=== PATIENT | male | born 1950 | race Caucasian/White ===

== ENCOUNTER 2019-11-28 04:04 | Inpatient (IN) | payer OTHER, SELFPAY ==
[~2019-11-28] VITALS: Ht 167.6 cm; Wt 62.6 kg
--- NOTE | 2019-11-28 | NUR ---
LATES TEMP - 98.8 - NO COMPLAIN MADE , O2 SAT WNL . WILL CONT. TO MONITOR.
[~2019-11-28 04:04] MED LIST: LOMOTIL; SEPTRA
--- NOTE | 2019-11-28 04:13 | NUR ---
PT IN TENT
[2019-11-28 04:28] VITALS: BP 146/93
--- NOTE | 2019-11-28 04:36 | NUR ---
69 Y/O MALE C/O X 3 DAYS ABD PAIN 10/10; HEADACHE; TEMP IN TRIAGE 102.6; PT DENIES ANY TRAUMA; DENIES N/V/D; SKIN IS PINK/WARM/DRY; AAOX4 WITH EVEN AND STEADY GAIT; HR EVEN AND REGULAR; PT DENIES ANY CP, SOB, OR COUGH AT THIS TIME; PATIENT STATES PAIN OF 10/10 AT THIS TIME; VSS; PATIENT POSITIONED FOR COMFORT PMH: PT DENIES NKA
--- NOTE | 2019-11-28 04:44 | NUR ---
URINE SAMPLE OBTAINED
--- NOTE | 2019-11-28 04:44 | NUR ---
URINE DIP DONE
--- NOTE | 2019-11-28 04:44 | NUR ---
PT AMBULATED TO BED 8 WITH STEADY GAIT
[2019-11-28] MEDS ORDERED: HYDROcodone/APAP 10/325 MG 1 TAB TAB PO STA (04:52)
[2019-11-28] MEDS ORDERED: NACL 0.9% 1,000 ML IV ONE (04:57)
[2019-11-28] MEDS ORDERED: ACETAMINOPHEN EXTRA STRENGTH 500 MG TAB PO ONE (05:00)
[2019-11-28] MEDS ORDERED: MORPHINE SULFATE 4 MG/ML SYR IVP ONE (05:00)
--- NOTE | 2019-11-28 05:04 | NUR ---
PT TAKEN TO CT VIA W/C
[2019-11-28] MEDS ORDERED: cefTRIAXone 1,000 MG VIAL ONE ×2 (05:05→18:01)
--- NOTE | 2019-11-28 05:18 | NUR ---
PT RETURNED FROM CT VIA W/C.
--- NOTE | 2019-11-28 05:39 | NUR ---
BLOOD LABS / CULTURES AND URINE SAMPLE COLLECTED AND WALKED TO LAB.
--- NOTE | 2019-11-28 05:40 | NUR ---
PT SAO2 87% ON RM AIR ,PT PUT ON 3L NC SAO2 96%.
--- NOTE | 2019-11-28 05:56 | NUR ---
PT RESTING IN BED,LOCKED AND IN LOWEST POSITION, HOB ELEVATED, SIDE RAIL X1 , PT CONNECTED TO COST ESTIMATOR, PULSE OX AND BP CUFF. RR EVEN AND UNLABORED, VSS.
[2019-11-28 06:15] LABS: BILIRUBIN,URINE NEGATIVE (NEGATIVE); BLOOD, URINE NEGATIVE (NEGATIVE); COLOR,URINE YELLOW (YELLOW); LEUKOCYTE ESTERASE ,URINE NEGATIVE (NEGATIVE); NITRITE, URINE NEGATIVE (NEGATIVE); UGLUCOSE NEGATIVE (NEGATIVE)
--- NOTE | 2019-11-28 06:15 | NUR ---
PER T/C LAB , BLOOD LABS HEMOLYZED NEED REDRAW.
[2019-11-28 06:18] LABS: APPEARANCE,URINE SLIGHTLY HAZY (CLEAR)
[2019-11-28 06:20] LABS: HEMATOCRIT 43.4 % (36-52); HEMOGLOBIN 15.3 g/dL (12.0-18.0); MEAN CORPUSCULAR HEMOGLOBIN 33 pg (27-31); MEAN CORPUSCULAR HGB CONC 35 g/dL (33-37); MEAN CORPUSCULAR VOLUME 92.9 fL (80-94); PLATELET COUNT (AUTO) 149 K/uL (140-450); RED BLOOD CELL COUNT(AUTO) 4.67 MIL/uL (4.20-6.10); RED CELL DISTRIBUTION WIDTH 13.4 % (11.6-13.7); WHITE BLOOD COUNT (AUTO) 5.3 K/uL (4.8-10.8)
[2019-11-28 06:26] LABS: RBC,URINE 0-5 /HPF (0-5); WBC,URINE 0-5 /HPF (0-5)
[2019-11-28 06:27] LABS: URINE AMORPHOUS URATE 1+ /HPF (None Seen)
[2019-11-28 06:39] LABS: LYMPHOCYTES % (MANUAL) 6 % (20-46); MONOCYTES % (MANUAL) 3 % (5-12)
[2019-11-28 06:40] LABS: BASOPHILS % (MANUAL) 0 % (0-2); EOSINOPHILS % (MANUAL) 0 % (0-4)
--- NOTE | 2019-11-28 06:45 | NUR ---
BLOOD LABS RECOLLECTED AND FLU, RSV AND COVID SWABS COLLECTED AND ALL WALKED TO LAB.
--- NOTE | 2019-11-28 06:49 | NUR ---
PER DR. MCNULTY LOWER PT O2 TO 2L NC , PT CURRENT ON 2L NC SAO2 95%.
[2019-11-28 07:41] LABS: RSV NEGATIVE (NEGATIVE)
[2019-11-28 07:41] LABS: ALBUMIN 2.6 g/dL (3.4-5.0); ANION GAP 12.7 (8-16); CARBON DIOXIDE 28.3 mmol/L (21-32); CREATININE 0.7 mg/dL (0.6-1.3); TOTAL BILIRUBIN 0.3 mg/dL (0.0-1.0)
--- NOTE | 2019-11-28 07:41 | NUR ---
REPORT GIVEN TO ELSIE PÉREZ FOR TRANSFER OF CARE.
--- NOTE | 2019-11-28 08:38 | NUR ---
PT RESTING IN [place], ON BEDSIDE MONITOR. PULSE OX 95% ON 2L NC.
--- NOTE | 2019-11-28 10:05 | NUR ---
PT STATES HE FEELS "VERY GOOD" NOW. ONLY REQUESTING FOR URINAL WHICH HAS BEEN PROVIDED TO PT. NO OTHER COMPLAINTS. VSS ON BEDSIDE MONITOR. TEMP 98.4 ORAL AT THIS TIME.
--- NOTE | 2019-11-28 14:51 | NUR ---
Received report from sav Velazquez. Transfer of care at this time
--- NOTE | 2019-11-28 14:53 | NUR ---
[facility] MYSELF AND EMT. REPORT TO ELSIE SOLIS. PT IN STABLE CONDITION. VSS.
--- NOTE | 2019-11-28 16:31 | NUR ---
Dr Coffman at bedside speaking to pt. States pt is able to eat regular diet. Order placed for dinner.
[2019-11-28] MEDS ORDERED: HYDROcodone/APAP 5/325 MG 1 TAB TAB PO PRN ×2 (16:45)
[2019-11-28] MEDS ORDERED: CLONIDINE HYDROCHLORIDE 0.1 MG TAB PO PRN (16:45)
[2019-11-28] MEDS ORDERED: DOCUSATE SODIUM 250 MG GELCAP PO PRN (16:45)
[2019-11-28] MEDS ORDERED: LORazepam 2 MG/ML VIAL IVP PRN (16:45)
[2019-11-28] MEDS ORDERED: SODIUM PHOSPHATE 118 ML ENEM RC PRN (16:45)
[2019-11-28] MEDS ORDERED: ONDANSETRON 4 MG/2 ML VIAL IVP PRN (16:45)
[2019-11-28] MEDS ORDERED: MAG SULF 2000 MG/WATER PREMIX 50 ML IV PRN (16:45)
[2019-11-28] MEDS ORDERED: diphenhydrAMINE 50 MG/ML VIAL IVP PRN (16:45)
[2019-11-28] MEDS ORDERED: MAGNESIUM OXIDE 400 MG TAB PO PRN (16:45)
[2019-11-28] MEDS ORDERED: ALUMINUM HYD/MAG/SIMETHICONE 30 ML UDC PO PRN (16:45)
[2019-11-28] MEDS ORDERED: MORPHINE SULFATE 2 MG/ML SYR IVP PRN (16:45)
[2019-11-28] MEDS ORDERED: bisacodyL 10 MG SUPP RC PRN (16:45)
[2019-11-28] MEDS ORDERED: guaiFENesin DM 200/20 MG-10 ML 10 ML UDC PO PRN (16:45)
[2019-11-28] MEDS ORDERED: ZOLPIDEM 5 MG TAB PO PRN (16:45)
[2019-11-28] MEDS ORDERED: IPRATROPIUM 0.02% 0.5 MG/2.5 ML NEBU INH PRN (16:45)
[2019-11-28] MEDS ORDERED: ALBUTEROL 0.083% 2.5 MG/3 ML NEBU INH PRN (16:45)
[2019-11-28] MEDS ORDERED: POTASSIUM CHLORIDE 10 MEQ TABER PO PRN (16:45)
[2019-11-28] MEDS ORDERED: ACETAMINOPHEN 650 MG SUPP RC PRN (16:45)
--- NOTE | 2019-11-28 17:17 | NUR ---
Sitting upright in bed positioned for comfort. States he is hungry and is reassured dinner will be given to him shortly, pt understands. RR even and unlabored, vss.
--- NOTE | 2019-11-28 17:40 | NUR ---
Pt given dinner, sitting upright eating. No complaints at this time. will continue to monitor
[2019-11-28] MEDS: DEXAMETHASONE 4 MG/ML VIAL IVP SCH (18:10)
[2019-11-28] MEDS ORDERED: AZITHROMYCIN 500 MG INJ VIAL IV ONE (18:32)
[2019-11-28] MEDS: AZITHROMYCIN 500 MG in DEXTROSE 5% 250 ML IV SCH (18:47)
--- NOTE | 2019-11-28 18:50 | NUR ---
Resting with eyes closed, visible rise and fall of the chest. vss
[2019-11-28 19:10] VITALS: BP 122/75
--- NOTE | 2019-11-28 19:10 | NUR ---
RECEIVED PT AAOX4 , NID - O2 SAT WNL - W/ O2 AT 2LPM/NC , DENIES ANY PAIN . IV SITE INTACT AND PATENT . SAFETY MEASURES IN PLACE . CALL LIGHT WITHIN REACH. ON TELE MONITOR.- SR .PLAN OF CARE DISCUSSED AND VERBALIZED UNDERSTANDING . FEBRILE - WILL MEDICATE FOR FEVER ORDERED . ON DROPLET / CONTACT ISOLATION . WILL CONT. TO MONITOR.
[2019-11-28] MEDS: ACETAMINOPHEN 325 MG TAB PO PRN (20:19)
[2019-11-28] MEDS: ENOXAPARIN 60 MG/0.6 ML SYR SUBQ SCH (20:20)
--- NOTE | 2019-11-28 21:12 | NUR ---
COVID RESULTS RECEIVED FROM LAB. RESULT- POSITIVE. COPY OF LAB RESULT PLACED IN INFECTION CONTROL MAILBOX.
--- NOTE | 2019-11-28 22:00 | NUR ---
MADE ROUNDS , NO S/SX OF ACUTE DISTRESS NOTED AT THIS TIME , WILL CONT. TO MONITOR.CALL LIGHT WITHIN REACH .
[2019-11-29] VITALS: BP 150/90
--- NOTE | 2019-11-29 02:00 | NUR ---
SLEEPING - CHEST RISE AND FALL EQUALLY - HOOK ON O2 SAT MONITORING- O2 SAT WNL .WILL CONT. TO MONITOR.
[2019-11-29 04:00] VITALS: BP 145/90
--- NOTE | 2019-11-29 04:00 | NUR ---
MADE ROUNDS , NO S/SX OF ACUTE DISTRESS NOTED AT THIS TIME , WILL CONT. TO MONITOR.
--- NOTE | 2019-11-29 06:00 | NUR ---
NO COMPLAIN MADE . O2 SAT WNL .
[2019-11-29 06:55] LABS: BASOPHILS % (AUTO) 0.5 % (0.0-2.0); HEMATOCRIT 34.3 % (36-52); HEMOGLOBIN 15.2 g/dL (12.0-18.0); LYMPHOCYTES # (AUTO) 0.3 K/uL (2.0-11.5); LYMPHOCYTES % (AUTO) 12.3 % (20.5-51.1); MEAN CORPUSCULAR HEMOGLOBIN 43 pg (27-31); MEAN CORPUSCULAR HGB CONC 44 g/dL (33-37); MEAN CORPUSCULAR VOLUME 97.8 fL (80-94); MONOCYTES # (AUTO) 0.3 K/uL (0.8-1.0); MONOCYTES % (AUTO) 11.8 % (1.7-9.3); NEUTROPHILS % (AUTO) 75.4 % (42.2-75.2); PLATELET COUNT (AUTO) 164 K/uL (140-450); RED BLOOD CELL COUNT(AUTO) 3.51 MIL/uL (4.20-6.10); RED CELL DISTRIBUTION WIDTH 13.4 % (11.6-13.7); WHITE BLOOD COUNT (AUTO) 2.6 K/uL (4.8-10.8)
[2019-11-29 07:15] LABS: ALBUMIN 2.8 g/dL (3.4-5.0); ANION GAP 15.2 (8-16); CARBON DIOXIDE 28.5 mmol/L (21-32); POTASSIUM 3.7 mmol/L (3.5-5.1); TOTAL BILIRUBIN 0.5 mg/dL (0.0-1.0)
--- NOTE | 2019-11-29 07:15 | NUR ---
Received report from pm nurse Sharon. Pt resting in bed, awake, verbally responsive, no signs of distress. Respirations even & nonlabored on O2 @ 2Lpm via n/c. Right AC IV 20G intact & asymptomatic. Will cont to monitor.
--- NOTE | 2019-11-29 07:15 | NUR ---
ENDORSED TO AM SHIFT - PT - STABLE .
[2019-11-29 08:00] VITALS: BP 145/90
[2019-11-29] MEDS: DEXAMETHASONE 4 MG/ML VIAL IVP SCH (08:41)
[2019-11-29] MEDS: ENOXAPARIN 60 MG/0.6 ML SYR SUBQ SCH ×2 (08:56→21:38)
--- NOTE | 2019-11-29 09:42 | NUR ---
PATIENT HAS BEEN SCREENED AND CATEGORIZED MODERATE NUTRITION RISK. PATIENT WILL BE SEEN WITHIN 3-5 DAYS OF ADMISSION. 11/30/19 12/02/[address]
--- NOTE | 2019-11-29 10:30 | NUR ---
Assisted patient to restroom. Pt able to ambulate with steady gait. Made regular BM, washed hands, and returned to bed. Educated patient on frequent hand hygiene for standard precautions. Call light and bedside phone placed within reach. Right AC IV intact & asymptomatic with ongoing NS @ 10ml/hr TKVO.
[2019-11-29 12:00] VITALS: BP 134/80
--- NOTE | 2019-11-29 13:13 | NUR ---
PRODUCT MARKETING PROGRAMS MANAGER NOTE: Patient's Orientation Unable To Assess Information Provided By KEAGAN KYLE Comments SW WAS UNABLE TO MEET PATIENT AT BEDSIDE DUE TO MEDICAL CONDITION. Title I Teacher, Realtionship and Phone Number ROMÁN KYLE [phone] Healthcare Power of Distributor Sales Consultant No Does Patient Have a POLST No Identifying Problems No Social Work Triggers Is A Social Work Consult Needed No Mandate Report Filed No Explanation Of Identifying Problems PATIENT IS A 69-YEAR-OLD MALE ADMITTED FOR HYPOXIA, PNA, AND COVID R/O. PATIENT HAS NO PERTINENT PMHX. Admitted From Home Pre-Admission Level Of Functioning Status Independent/Ambulatory Prior Resources/Services Used In Last 12 Months No Prior Resources Used Prior DME No Prior DME Used Living Situation Lives With Family House Patient Had Caregiver No Home Support CG/Fam Able To Meet Need Financial Issues No Known Financial Issue Referral To The Financial Counselor Needed No Factors/Needs No D/C Needs Identified Pt/Rep Participated In Discharge Plan Yes Patient/Family Agress With Discharge Plan Yes Discharge Plan Comments TENTATIVE DISCHARGE PLAN IS FOR PATIENT TO RETURN HOME. DC Plan Status Initiated
[2019-11-29 16:00] VITALS: BP 125/89
--- NOTE | 2019-11-29 16:15 | NUR ---
Pt resting in bed, awake, watching TV. SaO2 = 87% on O2 @ 3Lpm via n/c. No SOB noted. Pulse ox on different fingers, but SaO2 result remains the same. O2 titrated up to 5Lpm via n/c with improvement of SaO2 = 91-93%. Instructed patient on deep breathing exercises and encouraged prone positioning. Patient verbalized understanding and agree with plan of care.
[2019-11-29] MEDS: AZITHROMYCIN 500 MG in DEXTROSE 5% 250 ML IV SCH (17:46)
--- NOTE | 2019-11-29 19:29 | NUR ---
RECEIVED REPORT FROM DUY RN, FOR CONTINUITY OF CARE. PT IS AA&OX4; BRITISH AND ROMANSH SPEAKING. COVID +. RESPIRATIONS ARE EVEN AND UNLABORED, BREATHING TO 6L 02 VIA NC; SPO2: 91%. RAC 20G IS PATENT AND INTACT, AND RUNNING TKO. SKIN INTACT. REVIEWED PLAN OF CARE WITH PATIENT. DROPLET PRECAUTIONS IN PLACE. SIGNS POSTED. TELE MONITOR ATTACHED. SAFETY MEASURES IN PLACE, BED IN LOW POSITION, CALL LIGHT WITHIN REACH. NO DISTRESS NOTED. WILL CONTINUE TO MONITOR.
[2019-11-29 20:00] VITALS: BP 133/85
[2019-11-29] MEDS: ZINC SULF 220 MG CAP PO SCH (21:37)
--- NOTE | 2019-11-29 21:46 | NUR ---
PT'S SCHEDULED MEDICATIONS GIVEN, WITH MEDICATION EDUCATION PROVIDED. PT TOLERATED PO MEDS WELL. TELE MONITOR ATTACHED. SAFETY MEASURES IN PLACE, BED IN LOW POSITION, CALL LIGHT WITHIN REACH. NO DISTRESS NOTED. WILL CONTINUE TO MONITOR.
[2019-11-30] VITALS: BP 130/82
[2019-11-30] MEDS ORDERED: remdesivir COMMUNICATION ORDER 1 EA MISC MC PRN (00:10)
[2019-11-30 04:00] VITALS: BP 135/80
--- NOTE | 2019-11-30 04:17 | NUR ---
PT IS RESTING IN BED, AROUSABLE TO VOICE. VITAL SIGNS TAKEN; BP: 133/85, PULSE: 73, TEMP: 98.5, SPO2: 93%, RR: 18. PT IS BREATHING TO NC @ 3 LPM. TELE MONITOR ATTACHED. SAFETY MEASURES IN PLACE. NO ACUTE DISTRESS NOTED. WILL CONTINUE TO MONITOR.
[2019-11-30 06:50] LABS: ALBUMIN 2.5 g/dL (3.4-5.0); ANION GAP 12.5 (8-16); CARBON DIOXIDE 28.4 mmol/L (21-32); CREATININE 0.8 mg/dL (0.6-1.3); POTASSIUM 3.9 mmol/L (3.5-5.1); TOTAL BILIRUBIN 0.4 mg/dL (0.0-1.0)
--- NOTE | 2019-11-30 07:38 | NUR ---
GAVE REPORT TO DAYSHIFT NURSE, FOR CONTINUITY OF CARE. PT IS IN STABLE CONDITION.
--- NOTE | 2019-11-30 07:39 | NUR ---
RECEIVED REPORT FROM PM RNSHAHLA. PT C/O ABDOMINAL PAIN, FEVER X3DAYS. DX: HYPOXIA, PNEUMONIA, +COVID. NO HX. NKA. NORMAL SR. FULL CODE. IV RT AC 20G 10ML/HR NS TKO. DIET REGULAR. INDEPENDENT. NC3L 93% CRACKLES IN LUNGS. SKIN IS INTACT. WILL CONTINUE TO MONITOR.
[2019-11-30] MEDS ORDERED: CLINICAL MONITORING MC PRN (07:40)
[2019-11-30 08:00] VITALS: BP 121/76
[2019-11-30 08:49] LABS: BASOPHILS # (AUTO) 0.1 K/uL (0.00-0.22); HEMATOCRIT 44.8 % (36-52); HEMOGLOBIN 15.3 g/dL (12.0-18.0); LYMPHOCYTES # (AUTO) 0.5 K/uL (2.0-11.5); LYMPHOCYTES % (AUTO) 4.2 % (20.5-51.1); MEAN CORPUSCULAR HEMOGLOBIN 31 pg (27-31); MEAN CORPUSCULAR HGB CONC 34 g/dL (33-37); MEAN CORPUSCULAR VOLUME 89.4 fL (80-94); MONOCYTES # (AUTO) 0.7 K/uL (0.8-1.0); MONOCYTES % (AUTO) 6.4 % (1.7-9.3); NEUTROPHILS # (AUTO) 10.2 K/uL (1.8-7.7); NEUTROPHILS % (AUTO) 88.4 % (42.2-75.2); PLATELET COUNT (AUTO) 208 K/uL (140-450); RED BLOOD CELL COUNT(AUTO) 5.01 MIL/uL (4.20-6.10); RED CELL DISTRIBUTION WIDTH 13.3 % (11.6-13.7)
[2019-11-30 08:51] LABS: WHITE BLOOD COUNT (AUTO) 11.6 K/uL (4.8-10.8)
[2019-11-30] MEDS ORDERED: remdesivir 200 mg in NACL 0.9% 100 ML IV SCH (09:00)
--- NOTE | 2019-11-30 10:00 | NUR ---
no reaction to antiviral. will continue to monitor
[2019-11-30] MEDS: ZINC SULF 220 MG CAP PO SCH ×2 (10:17→20:47)
[2019-11-30] MEDS: ASCORBIC ACID 500 MG TAB PO SCH (10:18)
[2019-11-30] MEDS: DEXAMETHASONE 4 MG/ML VIAL IVP SCH (10:18)
[2019-11-30] MEDS: ENOXAPARIN 60 MG/0.6 ML SYR SUBQ SCH ×2 (10:21→20:56)
[2019-11-30 12:00] VITALS: BP 141/87
--- NOTE | 2019-11-30 13:00 | NUR ---
lunch tray was not brought to pts room.
--- NOTE | 2019-11-30 14:00 | NUR ---
no signs of distress. respirations even and unlabored. will continue to monitor
[2019-11-30 16:00] VITALS: BP 135/75
--- NOTE | 2019-11-30 16:00 | NUR ---
pt vs stable. no complaints of pain. turn on ac to help cool pt. will continue to monitor.
--- NOTE | 2019-11-30 19:30 | NUR ---
RECEIVED BEDSIDE REPORT FROM DAY RN. PT IS AAOX4 MACEDONIAN AND INDIAN SPEAKING. ABLE TO MAKE NEEDS KNOWN. RESPIRATIONS ARE EQUAL AND UNLABORED ON NC 3L O2. SKIN IS INTACT. IV ON RAC 20G TKO. PT IS AMBULATORY ON DROPLET FOR COVID +. CALL LIGHT IS WITHIN REACH. WILL ROUND FREQUENTLY.
--- NOTE | 2019-11-30 19:30 | NUR ---
transfer of care to pm rn. no signs of distress. vs stable.
[2019-11-30 20:00] VITALS: BP 146/89
--- NOTE | 2019-11-30 20:54 | NUR ---
RECEIVED REPORT FROM AM SHIFT. PT SEEN AND ASSESSED. PT IS ON 3L NC WITH SPO2 OF 96%. PT IN NO RESPIRATORY DISTRESS AT THIS TIME. WILL CONTINUE TO MONITOR PT.
[2019-11-30] MEDS: ACETAMINOPHEN 325 MG TAB PO PRN (20:59)
--- NOTE | 2019-11-30 20:59 | NUR ---
VSS. ADMINISTERED SILVIA MEDICATIONS PER ORDERS. ADMINISTERED PRN TYLENOL FOR C/C HEADACHE. PT TOLERATED WELL. MED EDUCATION GIVEN. PT VERBALIZED UNDERSTANDINGS. ALL NEEDS MET. CALL LIGHT IS WITHIN REACH. WILL CONTINUE TO MONITOR.
--- NOTE | 2019-11-30 22:00 | NUR ---
PT IS RESTING COMFORTABLY IN BED. ALL NEEDS MET. CALL LIGHT IS WITHIN REACH. WILL CONTINUE TO MONITOR.
[2019-12-01] VITALS: BP 145/86
--- NOTE | 2019-12-01 | NUR ---
VITAL SIGNS ARE WITHIN NORMAL LIMITS. ALL SAFETY MEASURES ARE IN PLACE. CALL LIGHT IS WITHIN REACH.
--- NOTE | 2019-12-01 02:00 | NUR ---
MADE ROUNDS. PT IS SLEEPING COMFORTABLY IN BED WITH EYES CLOSED. CHEST RISE AND FALL NOTED. SAFETY MEASURES ARE IN PLACE. CALL LIGHT IS WITHIN REACH.
[2019-12-01 04:00] VITALS: BP 128/78
--- NOTE | 2019-12-01 04:00 | NUR ---
VITAL SIGNS ARE WITHIN NORMAL LIMITS. ALL SAFETY MEASURES ARE IN PLACE. CALL LIGHT IS WITHIN REACH. WILL CONTINUE TO MONITOR.
[2019-12-01 06:59] LABS: ALBUMIN 2.6 g/dL (3.4-5.0); ANION GAP 12.3 (8-16); CARBON DIOXIDE 28.6 mmol/L (21-32); CREATININE 0.7 mg/dL (0.6-1.3); POTASSIUM 3.9 mmol/L (3.5-5.1); TOTAL BILIRUBIN 0.7 mg/dL (0.0-1.0)
[2019-12-01 07:07] LABS: HEMATOCRIT 31.9 % (36-52); HEMOGLOBIN 14.9 g/dL (12.0-18.0); MEAN CORPUSCULAR HEMOGLOBIN 46 pg (27-31); MEAN CORPUSCULAR HGB CONC 47 g/dL (33-37); MEAN CORPUSCULAR VOLUME 97.8 fL (80-94); PLATELET COUNT (AUTO) 208 K/uL (140-450); RED BLOOD CELL COUNT(AUTO) 3.26 MIL/uL (4.20-6.10); RED CELL DISTRIBUTION WIDTH 13.2 % (11.6-13.7); WHITE BLOOD COUNT (AUTO) 8.8 K/uL (4.8-10.8)
--- NOTE | 2019-12-01 07:44 | NUR ---
GAVE BEDSIDE REPORT. PT ENDORSED IN STABLE CONDITION.
--- NOTE | 2019-12-01 07:45 | NUR ---
RECEIVED REPORT FROM NIGHT NURSE. PATIENT IS AWAKE, ALERT AND ORIENTED X4. PATIENT IS SALVADOREAN SPEAKING. O2 ON AT 3L VIA NC. PLANS OF CARE DISCUSSED. IV INTACT AND PATENT TO RIGHT AC. NO S/S OF DISTRESS NOTED. CALL LIGHT WITHIN REACH. BED IN LOW POSITION. SAFETY MEASURES IN PLACE.
[2019-12-01 08:00] VITALS: BP 137/91
[2019-12-01] MEDS: ENOXAPARIN 60 MG/0.6 ML SYR SUBQ SCH ×2 (09:36→21:49)
[2019-12-01] MEDS: remdesivir 100 mg in NACL 0.9% 100 ML IV SCH (09:37)
[2019-12-01] MEDS: ZINC SULF 220 MG CAP PO SCH ×2 (09:40→21:46)
[2019-12-01] MEDS: ASCORBIC ACID 500 MG TAB PO SCH (09:40)
[2019-12-01] MEDS: DEXAMETHASONE 4 MG/ML VIAL IVP SCH (09:42)
--- NOTE | 2019-12-01 10:00 | NUR ---
PATIENT REMAINS STABLE. AAOX4. DENIES ANY SOB OR DISCOMFORT. CALL LIGHT WITHIN REACH.
[2019-12-01 12:00] VITALS: BP 143/80
--- NOTE | 2019-12-01 12:00 | NUR ---
ROUNDS MADE. PATIENT REMAINS STABLE. AAOX4. DENIES ANY SOB OR DISCOMFORT. CALL LIGHT WITHIN REACH.
[2019-12-01 12:16] LABS: BASOPHILS % (MANUAL) 0 % (0-2); EOSINOPHILS % (MANUAL) 0 % (0-4); LYMPHOCYTES % (MANUAL) 3 % (20-46); MONOCYTES % (MANUAL) 4 % (5-12)
--- NOTE | 2019-12-01 14:00 | NUR ---
PATIENT IN BED, RESTING QUIETLY. AWAKE, ALERT AND VERBALLY RESPONSIVE. DENIES PAIN OR DISCOMFORT. CALL LIGHT WITHIN REACH.
[2019-12-01 16:00] VITALS: BP 140/83
--- NOTE | 2019-12-01 16:00 | NUR ---
PATIENT IN BED. AWAKE, ALERT AND VERBALLY RESPONSIVE. DENIES PAIN OR DISCOMFORT. O2 ON @ 3L NC. CALL LIGHT WITHIN REACH.
--- NOTE | 2019-12-01 18:52 | NUR ---
PATIENT IN STABLE CONDITION. WILL ENDORSE TO NIGHT NURSE.
--- NOTE | 2019-12-01 19:05 | NUR ---
RECD. RESTING IN BED, AWAKE, A/OX4. RESPIRATION EVEN AND UNLABORED. IV SALINE LOCK AT THE RIGHT AC G 20, PATENT AND INTACT. 0N 02 AT 5 LITERS N/C, 02 SATURATION - 92%. AMBULATORY TO THE BATHROOM. PLAN OF CARE FOR THE SHIFT DISCUSSED. VERBALIZED UNDERSTANDING. DENIES PAIN 0/10.
[2019-12-01 20:00] VITALS: BP 139/94
--- NOTE | 2019-12-01 20:37 | NUR ---
RECEIVED REPORT FROM AM SHIFT. PT SEEN AND ASSESSED. PT ON 5L NASAL CANNULA WITH SPO2 OF 95%. PT IN NO APPARENT RESPIRATORY DISTRESS AT THIS TIME. PRN TX NOT INDICATED AT THIS MOMENT. WILL CONTINUE TO MONITOR PT.
--- NOTE | 2019-12-01 21:49 | NUR ---
DUE MEDICATIONS FOR THE NIGHT GIVEN.
[2019-12-01] MEDS: ACETAMINOPHEN 325 MG TAB PO PRN (22:40)
--- NOTE | 2019-12-01 22:40 | NUR ---
UNABLE TO SLEEP, MEDICATED WITH AMBIEN PER MD ORDER.
[2019-12-02] VITALS: BP 125/85
--- NOTE | 2019-12-02 | NUR ---
SLEEPING COMFORTABLY IN BED.
--- NOTE | 2019-12-02 02:18 | NUR ---
Patient's Plan of Care was discussed and reviewed with THERAPY AIDE: RAJEEV CASTILLO
[2019-12-02 04:00] VITALS: BP 142/89
--- NOTE | 2019-12-02 04:00 | NUR ---
ADVISED TO ALTERNATELY TURN TO THE SIDES DURING SLEEPING AND OCCASIONALLY TAKE DEEP BREATHS. NOD IN UNDERSTANDING.
--- NOTE | 2019-12-02 07:00 | NUR ---
ABLE TO SLEEP WELL. CONDITION REMAIN STABLE. WILL ENDORSE TO AM SHIFT NURSE FOR CONTINUITY OF CARE.
--- NOTE | 2019-12-02 07:43 | NUR ---
RECEIVED REPORT FROM CUSTOMER SERVICE CONSULTANT NURSE REGARDING PATIENT CONDITION AND PLAN OF CARE. PATIENT CURRENTLY SITTING UP IN BED, ALERT, ORIENTED X 4, IN NO C/O OF PAIN AT THIS TIME, CURRENTLY ON 3L NASAL CANNULA, IN NO S/S RESPIRATORY DISTRESS. PATIENT HAS OCCASIONAL NON PRODUCTIVE COUGH. ALL NEEDS MET, CALL LIGHT WITHIN REACH, WILL CONTINUE TO MONITOR. DROPLET PRECAUTIONS FOLLOWED.
[2019-12-02 07:45] LABS: ALBUMIN 2.4 g/dL (3.4-5.0); ANION GAP 12.7 (8-16); CARBON DIOXIDE 28.1 mmol/L (21-32); CREATININE 0.6 mg/dL (0.6-1.3); POTASSIUM 3.8 mmol/L (3.5-5.1); TOTAL BILIRUBIN 0.7 mg/dL (0.0-1.0)
[2019-12-02 07:49] LABS: BASOPHILS % (AUTO) 0.3 % (0.0-2.0); HEMATOCRIT 34.8 % (36-52); HEMOGLOBIN 14.6 g/dL (12.0-18.0); LYMPHOCYTES # (AUTO) 0.5 K/uL (2.0-11.5); LYMPHOCYTES % (AUTO) 5.5 % (20.5-51.1); MEAN CORPUSCULAR HEMOGLOBIN 41 pg (27-31); MEAN CORPUSCULAR HGB CONC 42 g/dL (33-37); MEAN CORPUSCULAR VOLUME 96.5 fL (80-94); MONOCYTES # (AUTO) 0.7 K/uL (0.8-1.0); MONOCYTES % (AUTO) 7.9 % (1.7-9.3); NEUTROPHILS # (AUTO) 7.6 K/uL (1.8-7.7); NEUTROPHILS % (AUTO) 86.3 % (42.2-75.2); PLATELET COUNT (AUTO) 208 K/uL (140-450); RED BLOOD CELL COUNT(AUTO) 3.61 MIL/uL (4.20-6.10); RED CELL DISTRIBUTION WIDTH 13.5 % (11.6-13.7); WHITE BLOOD COUNT (AUTO) 8.8 K/uL (4.8-10.8)
[2019-12-02 08:00] VITALS: BP 150/91
[2019-12-02] MEDS: ZINC SULF 220 MG CAP PO SCH ×2 (09:37→20:17)
[2019-12-02] MEDS: ASCORBIC ACID 500 MG TAB PO SCH (09:39)
[2019-12-02] MEDS: DEXAMETHASONE 4 MG/ML VIAL IVP SCH (09:40)
[2019-12-02] MEDS: ENOXAPARIN 60 MG/0.6 ML SYR SUBQ SCH ×2 (09:44→20:17)
[2019-12-02] MEDS: remdesivir 100 mg in NACL 0.9% 100 ML IV SCH (09:49)
[2019-12-02] MEDS: ACETAMINOPHEN 325 MG TAB PO PRN (10:33)
[2019-12-02 12:00] VITALS: BP 140/86
--- NOTE | 2019-12-02 12:39 | NUR ---
DISCHARGE PLANNING: THIS IS A 69 Y/O MALE PATIENT FROM HOME, WHO CAME IN DUE TO 3 DAYS OF MID ABDOMINAL PAIN AND HEADACHE. INITIAL DIAGNOSIS OF HYPOXIA, PNA AND R/O COVID. CURRENT LABS INCLUDE WBC 8.8, H/H 14.6/34.8, D DIMER 357. COVID POSITIVE. O2 AT 3LPM/NC. ON REMDESIVIR, DECADRON. ID CONSULT IN PLACE AND SEEN. DC PLAN BACK TO HOME ONCE STABLE. Addendum: 12/03/19 at 1202 by Belen Cleveland CM FAXED PATIENTS ORDER FOR HOME TO EScott TUCKER FROM [facility] CONTACTED ME STATING THAT THEY RECEIVED THE ORDER AND RAN THE PT'S INSURANCE AND THIS PATIENT WILL BE A MEIER PAY PATIENT. Addendum: 12/03/19 at 1218 by Lexi Tong CM RECEIVED A CALL FROM WILLIAM MCMILLAN OF [facility] [phone]. SHE REQUESTED TO SEND ORDERS TO [phone] OF HOME O2 AND TO ADD AN ORDER FOR HOME HEALTH FOR HOME SAFETY BONY. [facility] MADE AWARE. Addendum: 12/03/19 at 1352 by Lexi Tong CM RECEIVED A HARD COPY OF AUTH [id number] FOR HOME O2. CONTACTED [employer] AT [phone], ABLE TO SPEAK TO ENDY. HE PROVIDED ME WITH FAX NUMBER [phone] TO SEND CLINICALS. CLINICALS AND ORDER SENT TO THE PROVIDED NUMBER. WILL FOLLOW UP. Addendum: 12/03/19 at 1432 by Lexi Tong CM FAX TO [facility] DID NOT GO THROUGH TWICE. CONTACTED WILLIAM THOMAS TO GET ANOTHER FAX NUMBER. SHE PROVIDED ME WITH [phone]. CLINICALS SENT. I ALSO INQUIRED REGARDING HOME HEALTH, SHE STATED THEY ARE STILL "SHOPPING AROUND." Addendum: 12/03/19 at 1642 by Belen Cleveland CM [facility] PROCESSING THE ORDER FOR HOME 02 Addendum: 12/04/19 at 0919 by Belen Cleveland CM FOLLOWED UP WITH [employer] SPOKE WITH RODRIGUEZ GRANDE STATED THAT THE HOME O2 HAS BEEN DELIVERED TO THE HOME AND BESIDE. Addendum: 12/04/19 at 0942 by Belen Cleveland CM SPOKE WITH BROOKE [phone] AT [facility] REGARDING HOME HEALTH FOR PATIENT, SHE STATED THAT SHE IS GOING TO SET UP HOME HEALTH FOR PATIENT HOWEVER SHE STATED SINCE PATIENT IS COVID POSITIVE THE HOME HEALTH WILL BE VIRTUAL MEETINGS. SHE IS GOING TO REACH OUT TO THE PATIENT.
--- NOTE | 2019-12-02 14:44 | NUR ---
12/02/19 RD INITIAL ASSESSMENT COMPLETED PLEASE REFER TO NUTRITION ASSESSMENT UNDER CARE ACTIVITY FOR ESTIMATED NUTRITIONAL NEEDS. 1. CONTINUE REGULAR DIET TOLERATED 2. RECOMMEND ENSURE BID 3. RD TO FOLLOW-UP 5-7 DAYS, LOW RISK SHERWIN PINEDO RD
[2019-12-02 16:00] VITALS: BP 146/88
--- NOTE | 2019-12-02 16:00 | NUR ---
AMBULATED PATIENT AROUND ROOM, PER PT AND FAMILY REQUEST. O2 SATURATION 94% WITH 3L NC. . WHEN OXYGEN REMOVED, PATIENT ABLE TO AMBULATE AND O2 SATURATION STAYED STABLE AT 91%. PATIENT HAS STEADY GAIT, INDEPENDENT TRANSFER. ALL NEEDS MET, CALL LIGHT WITHIN REACH, DROPLET PRECAUTIONS FOLLOWED.
--- NOTE | 2019-12-02 19:15 | NUR ---
REPORT GIVEN TO SENIOR CENTER MANAGER NURSE REGARDING PATIENT CONDITION AND PLAN OF CARE. PATIENT IS RESTING IN BED, CURRENTLY ON 3L O2 VIA NC, STABILIZED, WITH ALL NEEDS MET, CALL LIGHT WITHIN REACH.
--- NOTE | 2019-12-02 19:16 | NUR ---
RECEIVED BEDSIDE ENDORSEMENT FROM AM SHIFT RN. AOX4. ON 3LNC. O2 SAT WNL. NO SOB. DROPLET PRECAUTION OBSERVED AT ALL TIMES. PLAN OF CARE WAS DISCUSSED. CALL LIGHT WITHIN REACH.
[2019-12-02 20:00] VITALS: BP 145/96
--- NOTE | 2019-12-02 20:17 | NUR ---
DUE MEDS GIVEN ORDERED. TOLERATED WELL. MED EDUCATION PROVIDED. WILL CONTINUE TO MONITOR.
[2019-12-03] VITALS: BP 140/93
--- NOTE | 2019-12-03 00:08 | NUR ---
V/S TAKEN AND RECORDED.
[2019-12-03 04:00] VITALS: BP 138/90
--- NOTE | 2019-12-03 04:00 | NUR ---
V/S WNL. RESPIRATION EVEN AND UNLABORED.
[2019-12-03 06:52] LABS: BASOPHILS % (AUTO) 0.2 % (0.0-2.0); EOSINOPHILS % (AUTO) 0.1 % (0.0-4.0); HEMATOCRIT 40.9 % (36-52); LYMPHOCYTES % (AUTO) 7.7 % (20.5-51.1); MEAN CORPUSCULAR HEMOGLOBIN 38 pg (27-31); MEAN CORPUSCULAR HGB CONC 39 g/dL (33-37); MEAN CORPUSCULAR VOLUME 96.5 fL (80-94); MONOCYTES # (AUTO) 0.9 K/uL (0.8-1.0); NEUTROPHILS # (AUTO) 10.8 K/uL (1.8-7.7); PLATELET COUNT (AUTO) 271 K/uL (140-450); RED BLOOD CELL COUNT(AUTO) 4.24 MIL/uL (4.20-6.10); RED CELL DISTRIBUTION WIDTH 13.3 % (11.6-13.7); WHITE BLOOD COUNT (AUTO) 12.7 K/uL (4.8-10.8)
--- NOTE | 2019-12-03 07:10 | NUR ---
RECEIVED REPORT ON PATIENT CONDITION FROM TABLE OPERATOR NURSE. PATIENT IS IN STABLE CONDITION, SITTING UP IN BED, ALERT, ORIENTED X 3, IN NO S/S ACUTE RESPIRATORY DISTRESS, NO COMPLAINTS OF PAIN. PATIENT WATER REFILLED, ALL NEEDS MET, CALL LIGHT WITHIN REACH. WILL CONTINUE TO MONITOR. DROPLET PRECAUTIONS FOLLOWED.
--- NOTE | 2019-12-03 07:10 | NUR ---
PATIENT IS IN STABLE CONDITION. NO SOB. ENDORSED AT BEDSIDE TO ELSIE AGUIRRE FOR CONTINUITY OF CARE.
[2019-12-03 07:13] LABS: ALBUMIN 2.6 g/dL (3.4-5.0); ANION GAP 11.2 (8-16); CARBON DIOXIDE 26.9 mmol/L (21-32); CREATININE 0.8 mg/dL (0.6-1.3); POTASSIUM 4.1 mmol/L (3.5-5.1); TOTAL BILIRUBIN 0.8 mg/dL (0.0-1.0)
[2019-12-03 08:00] VITALS: BP 117/84
[2019-12-03] MEDS: ZINC SULF 220 MG CAP PO SCH ×2 (08:43→20:05)
--- NOTE | 2019-12-03 08:43 | NUR ---
MEDICATIONS EXPLAINED AND GIVEN TO PATIENT, PATIENT REFUSES LOVENOX STATING IS NOT 'NECESSARY', EXPLAINED TO PATIENT RISK OF DEVELOPING BLOOD CLOTS IN LEGS, VERBALIZED UNDERSTANDING BUT STILL REFUSES. STATES THAT HE DOES LEG EXERCISES IN BED AND GETS UP AND WALKS. PATIENT TOOK OTHER MEDICATIONS, TOLERATED WELL, NO ADVERSE SIDE EFFECTS NOTED. PATIENT RESPIRATORY STATUS STABLE, ON 4L VIA NC, SATURATION 93%, IN NO ACUTE S/S RESPIRATORY DISTRESS, NO C/O OF PAIN AT THIS TIME. PATIENT SKIN COLOR IS NORMAL, NO CYANOSIS OR EDEMA NOTED. PATIENT ALERT ORIENTED X 4, LEBANESE SPEAKING BUT ABLE TO CONVERSE IN SPANISH. IV DEXAMETHASONE AND REMDESIVIR GIVEN, NO S/S INFECTION AT IV SITE, FLUSHES WELL, SKIN INTACT. PT HAS OCCASIONAL COUGH , NON PRODUCTIVE. PT STATES HE ALSO JUST HAD BOWEL MOVEMENT EARLIER. ALL NEEDS MET, CALL LIGHT WITHIN REACH, WILL CONTINUE TO MONITOR.
[2019-12-03] MEDS: ASCORBIC ACID 500 MG TAB PO SCH (08:44)
[2019-12-03] MEDS: DEXAMETHASONE 4 MG/ML VIAL IVP SCH (08:44)
[2019-12-03] MEDS: ENOXAPARIN 60 MG/0.6 ML SYR SUBQ SCH ×3 (08:46→20:07)
[2019-12-03] MEDS: remdesivir 100 mg in NACL 0.9% 100 ML IV SCH (08:54)
[2019-12-03] MEDS ORDERED: ZINC220C28 PO (09:44)
[2019-12-03] MEDS ORDERED: ACET-1182 PO (09:44)
[2019-12-03] MEDS ORDERED: VITC500 PO (09:44)
[2019-12-03] MEDS ORDERED: APIX5TAB PO (09:44)
[2019-12-03] MEDS ORDERED: DEC1 PO (09:46)
--- NOTE | 2019-12-03 10:40 | NUR ---
ROUNDED ON PATIENT, PATIENT IS IN NO ACUTE RESPIRATORY DISTRESS, DOES NOT COMPLAIN OF ANY PAIN AT THIS TIME. PATIENT URINAL EMPTIED OF 700 ML OF CLEAR, YELLOW URINE. WATER REFILLED. PATIENT IS ON 4L O2 VIA NASAL CANNULA, SATURATION 94%. ALL NEEDS MET, CALL LIGHT WITHIN REACH, WILL CONTINUE TO MONITOR.
[2019-12-03 12:00] VITALS: BP 132/88
--- NOTE | 2019-12-03 12:30 | NUR ---
PATIENT ROUNDS-PATIENT IS IN NO ACUTE RESPIRATORY DISTRESS, DOES NOT COMPLAIN OF ANY PAIN AT THIS TIME. PATIENT IS ON 4L O2 VIA NASAL CANNULA, SATURATION 94%. VS STABLE, NO FEVER, CHILLS, OR SHORTNESS OF BREATH. ALL NEEDS MET, CALL LIGHT WITHIN REACH, WILL CONTINUE TO MONITOR.
--- NOTE | 2019-12-03 14:10 | NUR ---
ROUNDED ON PATIENT, IN NO S/S RESPIRATORY DISTRESS, NO C/O OF PAIN AT THIS TIME. URINAL EMPTIED OF 700 CLEAR, YELLOW, NONODOROUS URINE. PATIENT STATES HE STOOD BY BEDSIDE FOR 10 MINUTES WITH NO SHORTNESS OF BREATH. PATIENT ALSO REFUSES TKO IV RATE DESPITE EXPLANATION THAT THE LINE CAN CLOT. PT VERBALIZED UNDERSTANDING BUT STILL REFUSES IV TKO RATE. PATIENT WATER REFILLED. ALL NEEDS MET, CALL LIGHT WITHIN REACH, WILL CONTINUE TO MONITOR. DROPLET PRECAUTIONS FOLLOWED.
[2019-12-03 16:00] VITALS: BP 127/93
--- NOTE | 2019-12-03 16:30 | NUR ---
ASSISTED PATIENT IN SPEAKING WITH HOME HEALTH CARE AGENCY, MADE AWARE OF OXYGEN BEING DELIVERED TO HOME TOMORROW. PT VERBALIZED UNDERSTANDING. PATIENT IS IN NO ACUTE RESPIRATORY DISTRESS, DOES NOT COMPLAIN OF ANY PAIN AT THIS TIME. PATIENT IS ON 4L O2 VIA NASAL CANNULA, SATURATION 93%. PT VITAL SIGNS STABLE, NO FEVER OR CHILLS, OR SHORTNESS OF BREATH NOTED. BATTERIES AND ECG LEAD STICKERS CHANGED, WATER REFILLED. BARREL RIFLER HOOK DID LINEN CHANGE. ALL NEEDS MET, CALL LIGHT WITHIN REACH, WILL CONTINUE TO MONITOR.
--- NOTE | 2019-12-03 18:30 | NUR ---
PATIENT STABILIZED, RESTING IN BED, IN NO C/O OF PAIN NO S/S RESPIRATORY DISTRESS. ALL NEEDS MET, WILL CONTINUE TO MONITOR.
--- NOTE | 2019-12-03 19:21 | NUR ---
REPORT GIVEN TO RAILROAD OPERATOR NURSE REGARDING PATIENT STATUS AND PLAN OF CARE. PATIENT IS STABILIZED, SITTING UP IN CHAIR, IN NO S/S RESPIRATORY DISTRESS. ON 4L O2 VIA NC, SATURATION 92%. HEALTHCARE ALSO BROUGHT O2 CONCENTRATOR FOR PATIENT, PLACED IN PATIENT'S ROOM. NO COMPLAINTS OF PAIN AT THIS TIME. ALL NEEDS MET, CALL LIGHT WITHIN REACH, WILL CONTINUE TO MONITOR.
[2019-12-03 20:00] VITALS: BP 128/81
--- NOTE | 2019-12-03 20:05 | NUR ---
DUE MEDS GIVEN ORDERED. TOLERATED WELL. MED EDUCATION PROVIDED.
[2019-12-03] MEDS ORDERED: ALBUTEROL HFA MDI 90 MCG/ACTUATION 8 GM INH PRN (20:50)
[2019-12-04] VITALS: BP 123/86
--- NOTE | 2019-12-04 | NUR ---
V/S TAKEN. NO SOB.
[2019-12-04 04:00] VITALS: BP 126/88
--- NOTE | 2019-12-04 04:00 | NUR ---
V/S TAKEN, CONTINUE ON O2 NC AT 4L W/ O2 SATURATION OF 94%. NO SOB. DENIES PAIN.
--- NOTE | 2019-12-04 07:30 | NUR ---
PATIENT IS IN STABLE CONDITION. NO SOB. ENDORSED AT BEDSIDE TO AM SHIFT RN FOR CONTINUITY OF CARE.
--- NOTE | 2019-12-04 07:31 | NUR ---
RECEIVED REPORT FROM MACHINE ROOM ENGINEER NURSE. PATIENT SITTING DOWN IN BED WATCHING TV. NO DISTRESS NOTED. DENIES ANY PAIN. AAOX4, CALM, COOPERATIVE, SKIN COLOR APPROPRIATE TO ETHNICITY, WARM TO TOUCH. SKIN INTACT. RESPIRATIONS EVEN, UNLABORED, ON O2 4L/MIN VIA NC. IV SITE INTACT, PATENT, AND INFUSING IVF PER MD ORDERS. REVIEWED PLAN OF CARE WITH PATIENT. PATIENT VERBALIZED UNDERSTANDING. SAFETY MEASURES IN PLACE, CALL LIGHT WITHIN REACH. WILL CONTINUE TO MONITOR.
[2019-12-04 08:00] VITALS: BP 122/84
[2019-12-04 09:24] LABS: ALBUMIN 2.8 g/dL (3.4-5.0); CARBON DIOXIDE 24.3 mmol/L (21-32); CREATININE 0.7 mg/dL (0.6-1.3); POTASSIUM 4.3 mmol/L (3.5-5.1); TOTAL BILIRUBIN 0.9 mg/dL (0.0-1.0)
[2019-12-04] MEDS: ASCORBIC ACID 500 MG TAB PO SCH (09:26)
[2019-12-04] MEDS: ZINC SULF 220 MG CAP PO SCH (09:26)
[2019-12-04] MEDS: DEXAMETHASONE 4 MG/ML VIAL IVP SCH (09:26)
[2019-12-04] MEDS: ENOXAPARIN 60 MG/0.6 ML SYR SUBQ SCH (09:28)
--- NOTE | 2019-12-04 09:36 | NUR ---
SCHEDULED MEDICATIONS DUE GIVEN. WILL CONTINUE TO MONITOR.
[2019-12-04] MEDS: remdesivir 100 mg in NACL 0.9% 100 ML IV SCH (11:03)
--- NOTE | 2019-12-04 11:03 | NUR ---
SCHEDULED MEDICATIONS DUE GIVEN. WILL CONTINUE TO MONITOR.
[2019-12-04 12:00] VITALS: BP 120/75
--- NOTE | 2019-12-04 14:20 | NUR ---
DISCHARGE INSTRUCTIONS PROVIDED TO PATIENT AND DAUGHTER ON THE PHONE, PATIENT PREFERS DAUGHTER TO TRANSLATE TO SWEDISH. INSTRUCTIONS IN FOLLOW-UP VISIT WITH PCP, COVID PRECAUTIONS AT HOME AND SELF ISOLATION, REGARDING HOME HEALTH TO CALL PATIENT TO SCHEDULE APPOINTMENT PER DISCHARGE GAS LEAK TESTER MANA, AND NEW/CHANGED MEDICATION REGIMEN AND SIDE EFFECTS. ANSWERED ALL OF PATIENT'S QUESTIONS REGARDING DISCHARGE. PATIENT FAMILY VERBALIZED COMPLETE UNDERSTANDING. AWAITING FOR FAMILY MEMBER TO COME ACCESS TECH PATIENT. IV SITE REMOVED WITH MINIMAL BLOOD AND LUMEN COMPLETELY INTACT. ID BANDS REMOVED. PATIENT TO GET DRESSED. OXYGEN TANK FOR HOME AT BEDSIDE. PATIENT/FAMILY VERBALIZED UNDERSTANDING ON HOW TO USE HOME OXYGEN TANK. WILL CONTINUE TO MONITOR.
--- NOTE | 2019-12-04 14:35 | NUR ---
PATIENT'S FAMILY MEMBER AT LOBBY TO WELL SERVICE FLOORPERSON PATIENT. WHEELED PATIENT DOWN TO LOBBY VIA WHEELCHAIR. PATIENT DISCHARGED AT THIS TIME IN STABLE CONDITION WITH HOME O2 TANK AT HIS SIDE.
== END 2019-12-04 14:35 | disposition home or self-care (01) | DRG 177 ==
LOC: MED 04:04 → MTU 07:04 → EEVIPCON 07:04 → MMU 13:43 → MTU 12-02 18:59 → MMU 12-02 19:40
PROVIDERS: ADMIT Internal Medicine Pulmonary Disease; ATTEND Internal Medicine Pulmonary Disease
DX: U07.1 COVID-19 (principal); J96.01 Acute respiratory failure with hypoxia; J12.89 Other viral pneumonia; K40.90 Unilateral inguinal hernia, without obstruction or gangrene, not specified as recurrent
CPT/HCPCS: 36415; 71045; 80053; 81001; 82948; 83605; 83690; 84484; 85025; 85379; 86140; 87040; 87081; 87086; 87420; 87804; 99285; J0456; J0696; J1100; J1650; J2270; J7030; J7060; Q0092; U0003-CS